=== PATIENT | male | born 1970 | race American Indian/Alaskan Native ===

== ENCOUNTER 2024-02-13 20:14 | Emergency (ER) | payer MEDICAID ==
[~2024-02-13] VITALS: Ht 165.1 cm; Wt 56.0 kg
[2024-02-13 21:15] VITALS: BP 125/85; PULSE 81; RESP 17; TEMP 98.1; O2SAT 100
[2024-02-13] MEDS ORDERED: FLUORESCEIN SODIUM 1MG/STRIP LEFTEYE ONE (23:45)
[2024-02-13] MEDS ORDERED: TETRACAINE 0.5% OPHTH DROPS 4ML LEFTEYE ONE (23:45)
[2024-02-14] MEDS ORDERED: ERYT1OIN6 LEFTEYE (01:05)
== END 2024-02-14 01:17 | disposition home or self-care (01) ==
LOC: ER 20:14
DX: S05.02XA Injury of conjunctiva and corneal abrasion without foreign body, left eye, initial encounter (principal); X58.XXXA Exposure to other specified factors, initial encounter; Y93.89 Activity, other specified; Y92.89 Other specified places as the place of occurrence of the external cause; Y99.8 Other external cause status
CPT/HCPCS: 99281; 99283